=== PATIENT | female | born 1980 | race Hispanic/Latino ===

== ENCOUNTER 2016-11-02 01:10 | Day surgery (SDC) | payer OTHER ==
[2016-11-02] VITALS (7 sets, daily range): BP systolic 106–148; BP diastolic 56–84
[~2016-11-02] VITALS: Ht 172.7 cm; Wt 90.7 kg
[2016-11-02] MEDS ORDERED: MORPHINE 4 MG/ML 1ML SYRINGE As Ordered ONE ×2 (01:53→02:50)
[2016-11-02] MEDS ORDERED: ONDANSETRON 4MG/2ML VIAL (J2405) As Ordered ONE ×2 (01:53→16:27)
[2016-11-02 01:54] LABS: BASO % 0.4 % (0.0-1.0); EOS % 0.4 % (0.0-3.0); LARGE UNSTAINED CELL # 0.1 K/mm3 (0.0-0.4); LARGE UNSTAINED CELL % 1.3 % (0.0-4.0); LYMPH # 1.5 K/mm3 (1.5-4.5); LYMPH % 18.2 % (24.0-44.0); MEAN CORPUSCULAR HEMOGLOBIN 33.1 pg (27.0-33.0); MEAN CORPUSCULAR HGB CONC 33.6 g/dl (32.0-36.5); MEAN CORPUSCULAR VOLUME 98.5 fl (80.0-96.0); MONO # 0.3 K/mm3 (0.0-0.8); NEUTROPHILS # 6.4 K/mm3 (1.8-7.7); NEUTROPHILS % 76.7 % (36.0-66.0); PLATELET COUNT, AUTOMATED 223 k/mm3 (150-450); RED CELL DISTRIBUTION WIDTH 12.2 % (11.5-14.5); WHITE BLOOD COUNT 8.3 K/mm3 (4.0-10.0)
[2016-11-02 02:07] LABS: ALBUMIN 3.8 GM/DL (3.2-5.2); ALBUMIN/GLOBULIN RATIO 0.93 (1.00-1.93); ALKALINE PHOSPHATASE 70 U/L (45-117); ALT/SGPT 23 U/L (12-78); AMYLASE 65 U/L (25-115); ANION GAP 9 MEQ/L (8-16); AST/SGOT 10 U/L (15-37); BILIRUBIN,DIRECT < 0.1 MG/DL (0.0-0.2); BILIRUBIN,TOTAL 0.3 MG/DL (0.2-1.0); BLOOD UREA NITROGEN 13 MG/DL (7-18); CALCIUM LEVEL 8.5 MG/DL (8.5-10.1); CARBON DIOXIDE LEVEL 28 MEQ/L (21-32); CHLORIDE LEVEL 104 MEQ/L (98-107); CREATININE FOR GFR 0.88 MG/DL (0.55-1.02); GLOMERULAR FILTRATION RATE > 60.0 (>60); GLUCOSE, FASTING 116 MG/DL (70-105); POTASSIUM SERUM 3.8 MEQ/L (3.5-5.1); SODIUM LEVEL 141 MEQ/L (136-145); TOTAL PROTEIN 7.9 GM/DL (6.4-8.2)
--- NOTE | 2016-11-02 02:50 | REPUSA ---
CLINICAL HISTORY: Abdominal pain. TECHNIQUE: Realtime sonographic images were obtained in multiple projections. COMMENTS: The liver is of normal size, parenchyma demonstrates normal echogenicity. No discrete hepatic mass is seen. There is mild biliary ductal dilatation. CBD measures 7.6mm. The gallbladder is distended measuring 1 2.4x4.5x3.5 cm with an impacted stone in the neck of the gallbladder or the cystic duct. The right ki dney measures 11.8x4.6x4.7 cm , free of hydronephrosis. IMPRESSION: Distended gallbladder. Impacted gallstone in the neck of the gallbladder or proximal cystic duct. Mildly dilated extrahepatic biliary tree. Thank you for your kind referral of this patient.
[2016-11-02] MEDS ORDERED: HYDROmorphone HCL 1 MG/ML SYRINGE (J1170) As Ordered ONE ×3 (05:17→10:57)
[2016-11-02] MEDS: LR 1,000 ML IV SCH ×3 (07:58→23:58)
[2016-11-02] MEDS ORDERED: HYDROmorphone HCL 1 MG/ML SYRINGE (J1170) IV PRN ×2 (08:00)
[2016-11-02] MEDS ORDERED: ONDANSETRON 4MG/2ML VIAL (J2405) IV PRN ×2 (08:00→17:45)
[2016-11-02] MEDS ORDERED: ACETAMINOPHEN TAB 650MG DOSE (2X325MG) PO PRN (08:00)
[2016-11-02] MEDS ORDERED: TRINTAB PO (08:12)
[2016-11-02] MEDS ORDERED: PANTOPRAZOLE 40MG INJ (PROTONIX) (C9113) IV SCH (09:00)
[2016-11-02 09:59] LABS: CONTROL LINE HCG INT CTR LINE PRESENT
--- NOTE | 2016-11-02 11:30 | EDDOCDS ---
Nurse's Notes [facility] Name: Lelia Connor Age: 36 yrs Sex: Female : 1980 Arrival Date: 11/02/2016 Time: 01:10 Bed Admit Hold Private MD: Diagnosis: Cholecystitis, unspecified Presentation: 11/02 01:22 Presenting complaint: Patient states: Pain in epigastric area and RUQ since 2200. kmg1 Nausea and vomiting also. Risk factors: the patient reports no vaginal bleeding. Suicide/Homicide risk assessment- the patient denies having any suicidal and/or homicidal ideations and does not present with any other emotional, behavioral or mental health complaints. Status: The patient is a dependent. Transition of care: patient was not received from another setting of care. 01:22 Acuity: ERIKA Level 3 km 01:22 Method Of Arrival: Walkin/Carried/Asstd km 05:24 Adult Sepsis Screening: The patient does not have new or worsening altered mentation. [facility] [place] Patient's respiratory rate is less than 22. Systolic blood pressure is greater than 100. Patient has a qSOFA score of 0- Negative Sepsis Screen. Triage Assessment: 01:25 General: Appears uncomfortable, well nourished, well groomed, Behavior is cooperative, kmg1 pleasant, restless. Pain: Location: epigastric area and right upper quadrant Pain currently is 10 out of 10 on a pain scale. Pain radiates to back Quality of pain is described as stabbing, Pain began suddenly 3 hours ago. GI: Reports upper abd pain, nausea, vomiting. 05:24 Pt Declines HIV testing. [facility] [place] CARBIDE GRINDER: 01:25 LMP 10/11/2016 kmg1 Historical: - Allergies: No known drug Allergies; - Home Meds: 1. BCP 1 tab once daily - PMHx: Pneumothorax, Spontaneous; - PSHx: none; - Social history: Smoking status: Patient states was never smoker of tobacco. No barriers to communication noted, The patient speaks fluent Romanian, Speaks appropriately for age. - Family history: Not pertinent, No immediate family members are acutely ill. - : The pt / caregiver states he / she is not on anticoagulants. Home medication list is obtained from the patient. - Exposure Risk Screening:: None identified. Screenin:30 Screening information is obtained from the patient. Fall risk: No risks identified. mlc Assistance ADL's: requires no assistance with activities of daily living. Abuse/DV Screen: The patient / caregiver reports he/she is: not in a situation that causes fear, pain or injury. Nutritional screening: No deficits noted. Advance Directives: Currently, there is no health care proxy. home support is adequate. Assessment: 01:30 General: Appears ill, Behavior is appropriate for age. Pain: Location: right upper mlc quadrant Pain currently is 10 out of 10 on a pain scale. Pain radiates to xyphoid area. Neurological: Level of Consciousness is awake, alert, obeys commands, Oriented to person, place, time. Respiratory: Airway is patent Respiratory effort is even, unlabored, Respiratory pattern is regular. GI: Abdomen is non- distended Pt is actively vomiting clear fluid, Bowel sounds present X 4 quads. Abd is soft X 4 quads Reports nausea, vomiting. Derm: Skin is normal. 02:04 Reassessment: Patient appears in no apparent distress at this time. Patient states mlc symptoms have not improved. pt medicated per order. 02:23 Reassessment: Patient appears in no apparent distress at this time. Patient states mlc symptoms have not improved. 02:56 Reassessment: pt medicated per order. mlc 03:30 Reassessment: Patient appears in no apparent distress at this time. pt resting, appears mlc comfortable. resp easy/unlabored. pt denies need for additional pain meds at this time. . 04:30 Reassessment: Patient appears in no apparent distress at this time. pt resting mlc comfortably with eyes closed. . 05:22 Reassessment: Patient appears in no apparent distress at this time. pt reports increase mlc in pain, provider made aware. pt medicated per order. resp easy/unlabored. . 05:24 Adult Sepsis Screening: The patient does not have new or worsening altered mentation. mlc Patient's respiratory rate is less than 22. Systolic blood pressure is greater than 100. Patient has a qSOFA score of 0- Negative Sepsis Screen. 05:50 Reassessment: Patient appears in no apparent distress at this time. Patient states mlc feeling better. pain decreased to 6/10. resp easy/unlabored. IV fluids infusing per order. 06:57 Reassessment: Patient appears in no apparent distress at this time. pt resting with mlc eyes closed, offers no complaints. resp easy/unlabored. IV fluids infusing per order. 07:32 General: Appears uncomfortable, Behavior is appropriate for age, cooperative. Pain: hs1 Location: right subscapular area Pain currently is 9 out of 10 on a pain scale. Respiratory: Airway is patent Respiratory effort is even, unlabored, Respiratory pattern is regular, symmetrical. GI: Abdomen is non- distended. Derm: Skin is pink, warm & dry. normal. 08:22 Reassessment: Pt aware of plan for today having gall bladder out today by Dr Collins. hs1 Pt receiving pain medication at present and is resting as comfortably as allows. Pt aware of diet. . 09:45 General: Appears in no apparent distress, to be sleeping. Pt appears comfortable no hs1 needs noted. Pt resting at this time reentering room. . 10:32 General: Appears in no apparent distress, Behavior is appropriate for age, cooperative. hs1 Pain: Location: right subscapular area Pain currently is 4 out of 10 on a pain scale. Respiratory: No deficits noted. GI: Denies nausea. Derm: Skin is pink, warm & dry. normal. 11:02 General: Behavior is appropriate for age, cooperative. General: Given pain medication hs1 per order at this time. No needs noted. Pt aware of transfer to floor. . Pain: Location: right subscapular area Pain currently is 5 out of 10 on a pain scale. Vital Signs: 01:25 BP 116 / 88; Pulse 63; Resp 22; Temp 97(O); Pulse Ox 100% on R/A; Weight 90.72 kg (R); kmg1 Height 5 ft. 10 in. (177.80 cm) (R); Pain 10/10; 02:21 BP 130 / 84 (auto/); mlc 02:23 BP 130 / 84; Pulse 55; Resp 20; Pulse Ox 99% ; Pain 10/10; mlc 02:56 Pulse Ox 100% ; mlc 03:09 BP 120 / 77 (auto/); mlc 03:09 Pulse Ox 99% ; mlc 03:24 BP 128 / 81 (auto/); mlc 03:24 Pulse Ox 100% ; mlc 03:39 Pulse Ox 100% ; mlc 03:39 BP 136 / 85 (auto/); mlc 03:54 Pulse Ox 100% ; mlc 03:54 BP 133 / 85 (auto/); mlc 04:09 Pulse Ox 99% ; mlc 04:09 BP 130 / 82 (auto/); mlc 04:24 Pulse Ox 100% ; mlc 04:24 BP 125 / 78 (auto/); mlc 04:39 Pulse Ox 99% ; mlc 04:39 BP 128 / 80 (auto/); mlc 04:54 BP 125 / 78 (auto/); mlc 04:54 Pulse Ox 99% ; mlc 05:09 BP 143 / 84 (auto/); mlc 05:09 Pulse Ox 99% ; mlc 05:24 Pulse Ox 96% ; mlc 05:24 BP 125 / 77 (auto/); mlc 05:39 Pulse Ox 95% ; mlc 05:39 BP 118 / 71 (auto/); mlc 05:49 BP 118 / 71; Pulse 61; Resp 16; Pulse Ox 96% ; Pain 6/10; mlc 05:54 Pulse Ox 95% ; mlc 05:54 BP 123 / 77 (auto/); mlc 06:09 Pulse Ox 95% ; mlc 06:09 BP 123 / 76 (auto/); mlc 06:24 Pulse Ox 96% ; mlc 06:24 BP 133 / 83 (auto/); mlc 06:39 Pulse Ox 95% ; mlc 06:39 BP 126 / 80 (auto/); mlc 06:54 BP 129 / 82 (auto/); mlc 06:54 Pulse Ox 95% ; mlc 07:33 BP 132 / 82; Pulse 84; Resp 18; Pulse Ox 96% ; Pain 9/10; hs1 07:59 Temp 98.6(O); nb2 10:29 BP 132 / 82; Pulse 80; Resp 18; Temp 97.7(O); Pulse Ox 99% on R/A; Pain 4/10; ct3 01:25 Body Mass Index 28.70 (90.72 kg, 177.80 cm) [facility] [place] Vitals: 01:25 Log In Time: November 02, 2016 at 01:11. [facility] ED Course: 01:11 Patient visited by Chelsey Milan Reg. hs2 01:11 Patient moved to Waiting hs2 01:24 Triage Initiated [facility] 01:29 Maira Long,RN is Primary Nurse. [facility] 01:29 Patient moved to 18 km 01:30 The patient / caregiver is instructed regarding the plan of care and ED course. mlc 01:30 Inserted saline lock: 20 gauge in right antecubital area and blood collected. The mlc patient tolerated the procedure well. 01:32 Susanne Snyder DO is PHCP. bs6 01:32 Kroy Miller DO is Attending Physician. bs6 01:34 Patient visited by Susanne Snyder DO. bs6 01:35 Patient visited by Susanne Snyder DO. bs6 01:50 Amylase Sent. mlc 01:50 Basic Metabolic Profile Sent. mlc 01:50 CBC with Diff Sent. mlc 01:50 Lipase Sent. mlc 01:50 Liver Profile Sent. mlc 01:58 Patient moved to Ultrasound dmg 02:04 Patient visited by Maira Long RN. mlc 02:19 Patient moved to 18 mlc 02:23 Patient visited by Maira Long RN. mlc 02:50 [facility] [place] Payment Agreement was scanned into [employer] and attached to record. lja 02:56 Patient visited by Maira Long RN. mlc 03:03 US Abd Limited Returned. EDMS 03:30 Patient visited by Maira Long RN. mlc 03:37 Patient name changed from Lelia\S\\S\Connor\S\ to Lelia\S\Yves\S\Connor. EDMS 04:31 Patient visited by Nati Werner PCA. erwin 05:24 Patient visited by Maira Long RN. mlc 05:50 Patient visited by Maira Long RN. mlc 06:58 Patient visited by Maira Long RN. mlc 07:15 Attending Physician role handed off by Kory Miller DO fg 07:15 China Villanueva MD is Attending Physician. fg 07:23 Primary Nurse role handed off by Maira Long RN deg 07:47 Patient visited by Yelitza Ridley RN. hs1 07:59 Patient visited by Gloria Alicea. nb2 08:02 Barry Collins is Hospitalizing Provider. fg 08:09 Written Provider Order was scanned into [employer] and attached to record. deg 09:23 Patient moved to Admit Hold deg 10:29 Patient visited by Olivia Sadler PCA. ct3 10:56 No procedures done that require assistance. hs1 Administered Medications: 02:02 Drug: morphine 4 mg [morphine 4 mg/mL intravenous cartridge (1 mL)] Route: IVP; Site: [facility] [place] right antecubital; 02:23 Follow up: BP 130 / 84; Pulse 55 bpm; Resp 20 bpm; Pulse Ox 99% ; Pain 10/10 Adult; mlc Response: No significant change.; Pain is unchanged, physician notified 02:02 Drug: Ondansetron 4 mg [ondansetron HCl 2 mg/mL intravenous solution (2 mL)] Route: mlc IVP; Site: right antecubital; 02:55 Drug: morphine 4 mg [morphine 4 mg/mL intravenous cartridge (1 mL)] Route: IVP; Site: [facility] [place] right antecubital; 03:28 Drug: NS 0.9% 1000 ml [sodium chloride 0.9 % intravenous solution] Route: IV; Rate: 200 mlc mL/hr; Site: right antecubital; 05:22 Drug: Dilaudid - HYDROmorphone 0.5 mg [hydromorphone 1 mg/mL injection syringe (0.5 mlc mL)] Route: IVP; Site: right antecubital; 05:49 Follow up: BP 118 / 71; Pulse 61 bpm; Resp 16 bpm; Pulse Ox 96% ; Pain 6/10 Adult; mlc Response: Pain is decreased 08:19 Drug: Dilaudid - HYDROmorphone 0.5 mg [hydromorphone 1 mg/mL injection syringe (0.5 hs1 mL)] Route: IVP; Site: right antecubital; 08:20 Drug: LR 1000 ml [lactated ringers intravenous solution] Route: IV; Rate: 125 mL/hr; hs1 Site: right antecubital; 11:04 Drug: Dilaudid - HYDROmorphone 0.5 mg [hydromorphone 1 mg/mL injection syringe (0.5 hs1 mL)] Route: IVP; Site: right antecubital; Order Results: Lab Order: Amylase; SPEC'M 11/02/16 01:39 Test: AMYLASE; Value: 65; Range: 25-115; Units: U/L; Status: F Lab Order: Basic Metabolic Profile; SPEC'M 11/02/16 01:39 Test: GLUCOSE, FASTING; Value: 116; Range: 70-105; Abnormal: Above high normal; Units: MG/DL; Status: F Test: BLOOD UREA NITROGEN; Value: 13; Range: 7-18; Units: MG/DL; Status: F Test: CREATININE FOR GFR; Value: 0.88; Range: 0.55-1.02; Units: MG/DL; Status: F Test: GLOMERULAR FILTRATION RATE; Value: > 60.0; Range: >60; Status: F Test: SODIUM LEVEL; Value: 141; Range: 136-145; Units: MEQ/L; Status: F Test: POTASSIUM SERUM; Value: 3.8; Range: 3.5-5.1; Units: MEQ/L; Status: F Test: CHLORIDE LEVEL; Value: 104; Range: 98-107; Units: MEQ/L; Status: F Test: CARBON DIOXIDE LEVEL; Value: 28; Range: 21-32; Units: MEQ/L; Status: F Test: ANION GAP; Value: 9; Range: 8-16; Units: MEQ/L; Status: F Test: CALCIUM LEVEL; Value: 8.5; Range: 8.5-10.1; Units: MG/DL; Status: F Test Note: ; Units are mL/min/1.73 m2 Chronic Kidney Disease Staging per NKF: Stage I & II GFR >=60 Normal to Mildly Decreased Stage III GFR 30-59 Moderately Decreased Stage IV GFR 15-29 Severely Decreased Stage V GFR <15 Very Little GFR Left ESRD GFR <15 on CERTIFIED WELLNESS PROGRAM COORDINATOR Lab Order: CBC with Diff; SPEC'M 11/02/16 01:39 Test: WHITE BLOOD COUNT; Value: 8.3; Range: 4.0-10.0; Units: K/mm3; Status: F Test: RED BLOOD COUNT; Value: 4.04; Range: 4.00-5.40; Units: M/mm3; Status: F Test: HEMOGLOBIN; Value: 13.4; Range: 12.0-16.0; Units: g/dl; Status: F Test: HEMATOCRIT; Value: 39.8; Range: 36.0-47.0; Units: %; Status: F Test: MEAN CORPUSCULAR VOLUME; Value: 98.5; Range: 80.0-96.0; Abnormal: Above high normal; Units: fl; Status: F Test: MEAN CORPUSCULAR HEMOGLOBIN; Value: 33.1; Range: 27.0-33.0; Abnormal: Above high normal; Units: pg; Status: F Test: MEAN CORPUSCULAR HGB CONC; Value: 33.6; Range: 32.0-36.5; Units: g/dl; Status: F Test: RED CELL DISTRIBUTION WIDTH; Value: 12.2; Range: 11.5-14.5; Units: %; Status: F Test: PLATELET COUNT, AUTOMATED; Value: 223; Range: 150-450; Units: k/mm3; Status: F Test: NEUTROPHILS %; Value: 76.7; Range: 36.0-66.0; Abnormal: Above high normal; Units: %; Status: F Test: LYMPH %; Value: 18.2; Range: 24.0-44.0; Abnormal: Below low normal; Units: %; Status: F Test: MONO %; Value: 3.0; Range: 0.0-5.0; Units: %; Status: F Test: EOS %; Value: 0.4; Range: 0.0-3.0; Units: %; Status: F Test: BASO %; Value: 0.4; Range: 0.0-1.0; Units: %; Status: F Test: LARGE UNSTAINED CELL %; Value: 1.3; Range: 0.0-4.0; Units: %; Status: F Test: NEUTROPHILS #; Value: 6.4; Range: 1.8-7.7; Units: K/mm3; Status: F Test: LYMPH #; Value: 1.5; Range: 1.5-4.5; Units: K/mm3; Status: F Test: MONO #; Value: 0.3; Range: 0.0-0.8; Units: K/mm3; Status: F Test: EOS #; Value: 0.0; Range: 0.0-0.50; Units: K/mm3; Status: F Test: BASO #; Value: 0.0; Range: 0.0-0.2; Units: K/mm3; Status: F Test: LARGE UNSTAINED CELL #; Value: 0.1; Range: 0.0-0.4; Units: K/mm3; Status: F Lab Order: Lipase; SPEC'M 11/02/16 01:39 Test: LIPASE; Value: 107; Range: 73-393; Units: U/L; Status: F Lab Order: Liver Profile; SPEC'M 11/02/16 01:39 Test: AST/SGOT; Value: 10; Range: 15-37; Abnormal: Below low normal; Units: U/L; Status: F Test: ALT/SGPT; Value: 23; Range: 12-78; Units: U/L; Status: F Test: ALKALINE PHOSPHATASE; Value: 70; Range: 45-117; Units: U/L; Status: F Test: BILIRUBIN,TOTAL; Value: 0.3; Range: 0.2-1.0; Units: MG/DL; Status: F Test: BILIRUBIN,DIRECT; Value: < 0.1; Range: 0.0-0.2; Units: MG/DL; Status: F Test: TOTAL PROTEIN; Value: 7.9; Range: 6.4-8.2; Units: GM/DL; Status: F Test: ALBUMIN; Value: 3.8; Range: 3.2-5.2; Units: GM/DL; Status: F Test: ALBUMIN/GLOBULIN RATIO; Value: 0.93; Range: 1.00-1.93; Abnormal: Below low normal; Status: F Radiology Order: US Abd Limited Test: US Abd Limited REASON FOR EXAMINATION: Biliary Colic; ; CLINICAL HISTORY: Abdominal pain.; TECHNIQUE: Realtime sonographic images were obtained in multiple projections.; COMMENTS:; The liver is of normal size, parenchyma demonstrates normal echogenicity. No discrete hepatic mass is; seen.; There is mild biliary ductal dilatation. CBD measures 7.6mm. The gallbladder is distended measuring 1; 2.4x4.5x3.5 cm with an impacted stone in the neck of the gallbladder or the cystic duct. The right ki; dney measures 11.8x4.6x4.7 cm , free of hydronephrosis.; IMPRESSION:; Distended gallbladder.; Impacted gallstone in the neck of the gallbladder or proximal cystic duct.; Mildly dilated extrahepatic biliary tree.; Thank you for your kind referral of this patient.; ; Outcome: 03:39 Ultrasound Study completed. [facility] [place] 08:03 Decision to Hospitalize by Provider. fg 11:02 Discharge Assessment: Patient awake, alert and oriented x 3. No cognitive and/or hs1 functional deficits noted. Patient verbalized understanding of disposition instructions. patient administered narcotics - yes. Pt provided with safe discharge. The following High Risk Discharge criteria are identified: None. Admitted to Pediatrics accompanied by nurse, family with patient, via wheelchair, with chart. Condition: stable. Admission hand-off: Report called to Pediatrics. Property :Personal belongings accompany Pt. 11:30 Patient left the ED. hs1 Signatures: Dispatcher [employer] EDMS Marcella Davis, Pole Framer Machine Unit deg Yessica Dutton, RN RN kmg1 Lucia Ford Hannah, RN RN hs1 Nati Werner, CAPTAIN/CHECK AIRMAN CAPTAIN/CHECK AIRMAN erwin Olivia Sadler, CAPTAIN/CHECK AIRMAN CAPTAIN/CHECK AIRMAN ct3 Susanne Snyder, DO DO bs6 Maira Long,RN RN [facility] [place] Arturo, China Leone MD MD fg Stanton, Hillary, Reg Reg hs2 Gloria Alicea 2 KUSH
--- NOTE | 2016-11-02 11:30 | EDDOCDS ---
Physician Documentation [facility] Name: Lelia Connor Age: 36 yrs Sex: Female : 1980 Arrival Date: 11/02/2016 Time: 01:10 Bed Admit Hold Private MD: Disposition: 11/02/16 08:03 Hospitalization ordered by Barry Collins for Inpatient Admission. Preliminary diagnosis is Cholecystitis, unspecified. - Bed requested for M PED. - Status is Inpatient Admission. hs1 - Condition is Stable. - Problem is new. - Symptoms have improved. Historical: - Allergies: No known drug Allergies; - Home Meds: 1. BCP 1 tab once daily - PMHx: Pneumothorax, Spontaneous; - PSHx: none; - Social history: Smoking status: Patient states was never smoker of tobacco. No barriers to communication noted, The patient speaks fluent Armenian, Speaks appropriately for age. - Family history: Not pertinent, No immediate family members are acutely ill. - : The pt / caregiver states he / she is not on anticoagulants. Home medication list is obtained from the patient. - Exposure Risk Screening:: None identified. OVERLAY PLASTICIAN: 11/02 01:25 LMP 10/11/2016 kmg1 Vital Signs: 01:25 BP 116 / 88; Pulse 63; Resp 22; Temp 97(O); Pulse Ox 100% on R/A; Weight 90.72 kg / 200 kmg1 lbs (R); Height 5 ft. 10 in. (177.80 cm) (R); Pain 10/10; 02:21 BP 130 / 84 (auto/); mlc 02:23 BP 130 / 84; Pulse 55; Resp 20; Pulse Ox 99% ; Pain 10/10; mlc 02:56 Pulse Ox 100% ; mlc 03:09 BP 120 / 77 (auto/); mlc 03:09 Pulse Ox 99% ; mlc 03:24 BP 128 / 81 (auto/); mlc 03:24 Pulse Ox 100% ; mlc 03:39 Pulse Ox 100% ; mlc 03:39 BP 136 / 85 (auto/); mlc 03:54 Pulse Ox 100% ; mlc 03:54 BP 133 / 85 (auto/); mlc 04:09 Pulse Ox 99% ; mlc 04:09 BP 130 / 82 (auto/); mlc 04:24 Pulse Ox 100% ; mlc 04:24 BP 125 / 78 (auto/); mlc 04:39 Pulse Ox 99% ; mlc 04:39 BP 128 / 80 (auto/); mlc 04:54 BP 125 / 78 (auto/); mlc 04:54 Pulse Ox 99% ; mlc 05:09 BP 143 / 84 (auto/); mlc 05:09 Pulse Ox 99% ; mlc 05:24 Pulse Ox 96% ; mlc 05:24 BP 125 / 77 (auto/); mlc 05:39 Pulse Ox 95% ; mlc 05:39 BP 118 / 71 (auto/); mlc 05:49 BP 118 / 71; Pulse 61; Resp 16; Pulse Ox 96% ; Pain 6/10; mlc 05:54 Pulse Ox 95% ; mlc 05:54 BP 123 / 77 (auto/); mlc 06:09 Pulse Ox 95% ; mlc 06:09 BP 123 / 76 (auto/); mlc 06:24 Pulse Ox 96% ; mlc 06:24 BP 133 / 83 (auto/); mlc 06:39 Pulse Ox 95% ; mlc 06:39 BP 126 / 80 (auto/); mlc 06:54 BP 129 / 82 (auto/); mlc 06:54 Pulse Ox 95% ; mlc 07:33 BP 132 / 82; Pulse 84; Resp 18; Pulse Ox 96% ; Pain 9/10; hs1 07:59 Temp 98.6(O); nb2 10:29 BP 132 / 82; Pulse 80; Resp 18; Temp 97.7(O); Pulse Ox 99% on R/A; Pain 4/10; ct3 01:25 Body Mass Index 28.70 (90.72 kg, 177.80 cm) [facility] [place]DM: 01:45 morphine 4 mg IVP once ordered. bs6 01:48 Undress patient appropriately for examination ordered. bs6 01:49 Amylase Ordered. EDMS 01:49 Basic Metabolic Profile Ordered. EDMS 01:49 CBC with Diff Ordered. EDMS 01:49 Lipase Ordered. EDMS 01:49 Liver Profile Ordered. EDMS 01:49 NOTHING BY MOUTH+DIET ordered. EDMS 01:50 US Abd Limited Ordered. EDMS 01:53 Ondansetron 4 mg IVP once ordered. bs6 02:30 morphine 4 mg IVP once ordered. bs6 02:50 [place] Payment Agreement was scanned into [employer] and attached to record. lja 02:50 Financial registration complete. lja 03:14 NS 0.9% 1000 ml IV at 200 mL/hr continuous ordered. bs6 05:16 Dilaudid - HYDROmorphone 0.5 mg IVP once ordered. bs6 08:03 BED REQUEST+ADM ordered. EDMS 08:07 Admission / Observation Status ordered. EDMS 08:07 NPO DIET ordered. EDMS 08:09 Written Provider Order was scanned into [employer] and attached to record. deg 08:19 LR Solution 1000 ml IV at 125 mL/hr once ordered. hs1 08:19 Dilaudid - HYDROmorphone 0.5 mg IVP once ordered. hs1 09:41 HCG,Serum Qualitative Ordered. EDMS 11:03 Dilaudid - HYDROmorphone 0.5 mg IVP once ordered. hs1 Administered Medications: 02:02 Drug: morphine 4 mg [morphine 4 mg/mL intravenous cartridge (1 mL)] Route: IVP; Site: mlc right antecubital; 02:23 Follow up: BP 130 / 84; Pulse 55 bpm; Resp 20 bpm; Pulse Ox 99% ; Pain 10/10 Adult; mlc Response: No significant change.; Pain is unchanged, physician notified 02:02 Drug: Ondansetron 4 mg [ondansetron HCl 2 mg/mL intravenous solution (2 mL)] Route: mlc IVP; Site: right antecubital; 02:55 Drug: morphine 4 mg [morphine 4 mg/mL intravenous cartridge (1 mL)] [place]: IVP; [place] [facility] [place]; 03:28 Drug: NS 0.9% 1000 ml [sodium chloride 0.9 % intravenous solution] Route: IV; Rate: 200 mlc mL/hr; Site: right antecubital; 05:22 Drug: Dilaudid - HYDROmorphone 0.5 mg [hydromorphone 1 mg/mL injection syringe (0.5 mlc mL)] Route: IVP; Site: right antecubital; 05:49 Follow up: BP 118 / 71; Pulse 61 bpm; Resp 16 bpm; Pulse Ox 96% ; Pain 6/10 Adult; mlc Response: Pain is decreased 08:19 Drug: Dilaudid - HYDROmorphone 0.5 mg [hydromorphone 1 mg/mL injection syringe (0.5 hs1 mL)] Route: IVP; Site: right antecubital; 08:20 Drug: LR 1000 ml [lactated ringers intravenous solution] Route: IV; Rate: 125 mL/hr; hs1 Site: right antecubital; 11:04 Drug: Dilaudid - HYDROmorphone 0.5 mg [hydromorphone 1 mg/mL injection syringe (0.5 hs1 mL)] Route: IVP; Site: right antecubital; Signatures: Dispatcher [employer] EDMS Marcella Davis, Hot Die Press Feeder Unit deg Yessica Dutton, RN RN kmg1 Yelitza Ridley RN RN hs1 Susanne Snyder DO DO bs6 Maira Long,RN RN mlc Arel, China Leone MD MD Miguelina Saba RN RN lmg The chart was reviewed and I authenticate all verbal orders and agree with the evaluation and treatment provided.Attachments: 02:50 [facility] Payment Agreement 08:09 Written Provider Order deg MTDD
[2016-11-02] MEDS: AMPICILLIN SOD/SULBACTAM SOD 3 GM in D5W MINI-BAG PLUS 100 ML IV SCH ×3 (11:48→19:59)
[2016-11-02] MEDS: KETOROLAC 30 MG/ML VIAL (J1885) IV PRN ×2 (13:53→20:06)
[2016-11-02] MEDS ORDERED: BUPIVACAINE HCL 0.25% 30 ML VIAL As Ordered ONE (15:15)
[2016-11-02] MEDS ORDERED: MIDAZOLAM INJ 2 MG/2 ML VIAL (J2250) As Ordered ONE (16:03)
[2016-11-02] MEDS ORDERED: dexameTHASONE 4 MG/ML 1ML VIAL (J1100) As Ordered ONE (16:03)
[2016-11-02] MEDS ORDERED: PROPOFOL 200 MG/20 ML VIAL As Ordered ONE (16:03)
[2016-11-02] MEDS ORDERED: fentaNYL 250 MCG/5 ML INJECTION (J3010) As Ordered ONE (16:03)
[2016-11-02] MEDS ORDERED: ROCURONIUM BROMIDE 50 MG/5 ML VIAL As Ordered ONE (16:03)
[2016-11-02] MEDS ORDERED: PHENYLephrine HCL 500 MCG/5 ML (100MCG/ML) SYRINGE (J2370) As Ordered ONE (16:10)
[2016-11-02] MEDS ORDERED: GLYCOPYRROLATE INJ 0.2 MG/ML 2 ML VIAL As Ordered ONE (16:27)
[2016-11-02] MEDS ORDERED: KETOROLAC 60 MG/2 ML VIAL (J1885) As Ordered ONE (16:27)
[2016-11-02] MEDS ORDERED: NEOSTIGMINE 1MG/ML 5 ML SYRINGE (J2710) As Ordered ONE (16:27)
[2016-11-02] MEDS ORDERED: BUPIVACAINE HCL 0.25% 30 ML VIAL SC ONE (17:10)
[2016-11-02] MEDS ORDERED: METOCLOPRAMIDE INJ 10MG/2ML VIAL (J2765) IV PRN (17:45)
[2016-11-02] MEDS ORDERED: MORPHINE 2 MG/ML 1ML SYRINGE IV PRN (17:45)
[2016-11-02] MEDS ORDERED: PERCOCET 5MG/325MG TAB PO PRN (17:45)
[2016-11-02] MEDS ORDERED: LR 1,000 ML IV SCH (17:45)
[2016-11-02] MEDS ORDERED: fentaNYL 100 MCG/2 ML INJECTION (J3010) IV PRN (17:45)
[2016-11-03] VITALS: BP 104/57
[2016-11-03] MEDS: NORCO, ANEXSIA 5/325MG TABLET (HYDROcodone/ACETAMINOPHEN) PO PRN ×2 (00:34→05:28)
[2016-11-03 04:00] VITALS: BP 112/73
[2016-11-03] MEDS: LR 1,000 ML IV SCH (07:24)
[2016-11-03 08:00] VITALS: BP 122/72
--- NOTE | 2016-11-03 08:30 | HPE ---
DATE OF ADMISSION: 11/02/2016 Admitting diagnosis is cholelithiasis with acute cholecystitis. HISTORY OF THE PRESENT ILLNESS: Patient is a very pleasant, 36-year-old woman who presented to the emergency department at 0110 hours in the morning on 11/02/2016 complaining of epigastric and right upper quadrant pain since approximately 2200 hours. Patient reports that she had been feeling well. She denies any history of prior episodes of similar pain. She developed what was at first fairly mild epigastric pain into the right upper quadrant. She developed some nausea. The pain worsened in intensity and the nausea progressed to vomiting. The pain did not let up and she presented to the emergency department for evaluation. She was found to have some tenderness in the right upper quadrant. Her laboratory studies were unremarkable and a gallbladder ultrasound revealed a gallstone located in the gallbladder neck with some gallbladder distension. Patient's pain was improved by analgesics but did not resolve, and after 10 hours she still has pain in the right upper quadrant with tenderness on palpation in the subcostal area. With a diagnosis of acute cholecystitis, the patient is now placed on same-day surgery status to have a laparoscopic cholecystectomy. ALLERGIES: The patient denies any known drug allergies. HOME MEDICATION: Patient's only medication is her daily control pill. Her medical history is significant for a spontaneous pneumothorax on the left some years ago, which was treated with tube thoracostomy. Surgical history is negative other than the tube thoracostomy. SOCIAL HISTORY: The patient is . She participates in [employer]. She is a never smoker and denies excessive alcohol intake. She is accompanied by her who is an active duty automobile service writer. Family history is not pertinent. REVIEW OF SYSTEMS: Reveals no history of seizure. She denies any cardiac or respiratory problems. She has no history of hepatitis, pancreatitis or yellow jaundice. She denies any history of peptic ulcer disease or gastrointestinal bleeding. She has no dysuria or hematuria. There are no active gynecologic problems. She has no orthopedic complaints. There is no history of deep venous thrombosis (DVT) or pulmonary embolus. PHYSICAL EXAMINATION: Reveals a very pleasant woman lying quietly on the hospital stretcher in no obvious distress. Her most recent vital signs show a blood pressure of 132/82, pulse of 84, respirations of 18. Her height is recorded as 5 feet 10 inches with a weight of 91 kg, giving her a body mass index (BMI) of approximately 29. Patient's skin is warm and dry. Sclerae are anicteric. Mucous membranes are moist. The neck is supple, without mass or bruit. Heart exam shows a regular rate and rhythm. The lungs are clear to auscultation. The abdomen is flat. She does have some bowel sounds present. There is no tympany to percussion. There is no tenderness to percussion. On palpation of the right upper quadrant, patient has mild to moderate direct tenderness in the right subcostal area. This is fairly limited in an area about 10 cm wide. Her laboratory studies show white count of 8 with a differential showing 77% neutrophils and 18% lymphocytes. Hemoglobin is 13 with a hematocrit of 40 and a platelet count is 223,000. Chemistry profile shows normal electrolytes, BUN and creatinine, with a glucose which was nonfasting of 116. Amylase and lipase are normal. Liver function tests are normal. Gallbladder ultrasound as noted showed a stone in the gallbladder neck with some gallbladder distension. IMPRESSION: Acute cholecystitis. PLAN: Patient was counseled for laparoscopic cholecystectomy. Indications for the procedure as well as the risks and possible benefits were discussed. She had an opportunity to ask questions as did her . They wish to proceed with the procedure. She will be placed on same-day surgery status. She will be started on Unasyn for antibiotic coverage. Orders are in place for analgesics as necessary and we will plan on adding her to the operating room (OR) for today. KUSH
[2016-11-03] MEDS: KETOROLAC 30 MG/ML VIAL (J1885) IV PRN (08:45)
--- NOTE | 2016-11-03 10:49 | RO ---
DATE OF PROCEDURE: 11/02/2016 PREOPERATIVE DIAGNOSIS: Acute cholecystitis. POSTOPERATIVE DIAGNOSIS: Acute cholecystitis. PROCEDURE PERFORMED: Laparoscopic cholecystectomy. SURGEON: Barry Collins MD TRANSPORTATION DEPARTMENT SUPERVISOR: ANESTHESIA: General. INDICATIONS FOR THE PROCEDURE: Patient is a 36-year-old woman who presented to the emergency department following the onset of the evening of 11/01/2016 of significant upper abdominal pain. A gallbladder ultrasound revealed a stone at the gallbladder neck. She continued with pain and developed tenderness in the right subcostal area. She was diagnosed with acute cholecystitis and kept on surgical day care status for laparoscopic cholecystectomy. OPERATIVE PROCEDURE: The patient was placed under general endotracheal anesthesia. The patient's abdomen was prepped and draped in a sterile fashion. 0.25% Marcaine was infiltrated at each of the trocar sites. A short supraumbilical midline incision was deepened through the fascia and the peritoneum was opened bluntly. A Alesha cannula was inserted and the abdomen was insufflated with carbon dioxide. The laparoscope was placed. Initial examination showed a normal-appearing liver. Visualized loops of the stomach and small and large bowel were normal. The gallbladder was distended and appeared mildly erythematous. Two 5 mm trocars were placed in the right upper quadrant. The third 5 mm trocar was placed in the left upper quadrant. The patient was tilted to a reverse Trendelenburg position and rolled to the left. The gallbladder was tensely distended. The gallbladder was aspirated and the aspirated fluid was clear and completely colorless like water. This was discarded. The gallbladder was grasped and elevated. Dissection then began at the region of the gallbladder neck. The patient was noted to have some inflammatory changes in the region around the gallbladder neck. As dissection proceeded, it was noted that the patient had a fairly long cystic duct and a stone was noted in the distal cystic duct, perhaps 2 cm from the junction with the common bile duct. The cystic duct was doubly clipped with hemoclips and divided. The gallbladder was then dissected free from the gallbladder bed using cautery dissection. A major artery to the gallbladder was not identified. The gallbladder was not perforated in the course of dissection. The gallbladder was placed in an Endopouch. The right upper quadrant was irrigated and inspected. A small bleeding point along the lateral edge of the gallbladder bed was controlled with the cautery. Final inspection revealed no evidence of bleeding and no bile leak. The patient was returned to a flat position. The abdomen was deflated and the trocars were removed. The gallbladder was recovered through the Alesha cannula. This was sent for permanent pathology. The fascia at the Alesha site was closed with interrupted simple sutures of #2-0 Vicryl. The skin incisions were all closed with buried #5-0 Vicryl and Steri-Strips. Light dressings were applied. The patient tolerated the procedure well without apparent complication. She was awakened in the operating room, extubated and moved to the recovery room in stable condition. KUSH
--- NOTE | 2016-11-04 12:31 | EDDOCDS ---
Nurse's Notes [facility] Name: Lelia Connor Age: 36 yrs Sex: Female : 1980 Arrival Date: 11/02/2016 Time: 01:10 Bed Admit Hold Private MD: Diagnosis: Cholecystitis, unspecified Presentation: 11/02 01:22 Presenting complaint: Patient states: Pain in epigastric area and RUQ since 2200. kmg1 Nausea and vomiting also. Risk factors: the patient reports no vaginal bleeding. Suicide/Homicide risk assessment- the patient denies having any suicidal and/or homicidal ideations and does not present with any other emotional, behavioral or mental health complaints. Status: The patient is a dependent. Transition of care: patient was not received from another setting of care. 01:22 Acuity: ERIKA Level 3 km 01:22 Method Of Arrival: Walkin/Carried/Asstd km 05:24 Adult Sepsis Screening: The patient does not have new or worsening altered mentation. [facility] Patient's respiratory rate is less than 22. Systolic blood pressure is greater than 100. Patient has a qSOFA score of 0- Negative Sepsis Screen. Triage Assessment: 01:25 General: Appears uncomfortable, well nourished, well groomed, Behavior is cooperative, kmg1 pleasant, restless. Pain: Location: epigastric area and right upper quadrant Pain currently is 10 out of 10 on a pain scale. Pain radiates to back Quality of pain is described as stabbing, Pain began suddenly 3 hours ago. GI: Reports upper abd pain, nausea, vomiting. 05:24 Pt Declines HIV testing. 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 BCP 1 tab once daily - PMHx: Pneumothorax, Spontaneous; - PSHx: none; - Social history: Smoking status: Patient states was never smoker of tobacco. No barriers to communication noted, The patient speaks fluent Vietnamese, Speaks appropriately for age. - Family history: Not pertinent, No immediate family members are acutely ill. - : The pt / caregiver states he / she is not on anticoagulants. Home medication list is obtained from the patient. - Exposure Risk Screening:: None identified. Screenin:30 Screening information is obtained from the patient. Fall risk: No risks identified. mlc Assistance ADL's: requires no assistance with activities of daily living. Abuse/DV Screen: The patient / caregiver reports he/she is: not in a situation that causes fear, pain or injury. Nutritional screening: No deficits noted. Advance Directives: Currently, there is no health care proxy. home support is adequate. Assessment: 01:30 General: Appears ill, Behavior is appropriate for age. Pain: Location: right upper mlc quadrant Pain currently is 10 out of 10 on a pain scale. Pain radiates to xyphoid area. Neurological: Level of Consciousness is awake, alert, obeys commands, Oriented to person, place, time. Respiratory: Airway is patent Respiratory effort is even, unlabored, Respiratory pattern is regular. GI: Abdomen is non- distended Pt is actively vomiting clear fluid, Bowel sounds present X 4 quads. Abd is soft X 4 quads Reports nausea, vomiting. Derm: Skin is normal. 02:04 Reassessment: Patient appears in no apparent distress at this time. Patient states mlc symptoms have not improved. pt medicated per order. 02:23 Reassessment: Patient appears in no apparent distress at this time. Patient states mlc symptoms have not improved. 02:56 Reassessment: pt medicated per order. mlc 03:30 Reassessment: Patient appears in no apparent distress at this time. pt resting, appears mlc comfortable. resp easy/unlabored. pt denies need for additional pain meds at this time. . 04:30 Reassessment: Patient appears in no apparent distress at this time. pt resting mlc comfortably with eyes closed. . 05:22 Reassessment: Patient appears in no apparent distress at this time. pt reports increase mlc in pain, provider made aware. pt medicated per order. resp easy/unlabored. . 05:24 Adult Sepsis Screening: The patient does not have new or worsening altered mentation. mlc Patient's respiratory rate is less than 22. Systolic blood pressure is greater than 100. Patient has a qSOFA score of 0- Negative Sepsis Screen. 05:50 Reassessment: Patient appears in no apparent distress at this time. Patient states mlc feeling better. pain decreased to 6/10. resp easy/unlabored. IV fluids infusing per order. 06:57 Reassessment: Patient appears in no apparent distress at this time. pt resting with mlc eyes closed, offers no complaints. resp easy/unlabored. IV fluids infusing per order. 07:32 General: Appears uncomfortable, Behavior is appropriate for age, cooperative. Pain: hs1 Location: right subscapular area Pain currently is 9 out of 10 on a pain scale. Respiratory: Airway is patent Respiratory effort is even, unlabored, Respiratory pattern is regular, symmetrical. GI: Abdomen is non- distended. Derm: Skin is pink, warm & dry. normal. 08:22 Reassessment: Pt aware of plan for today having gall bladder out today by Dr Collins. hs1 Pt receiving pain medication at present and is resting as comfortably as allows. Pt aware of diet. . 09:45 General: Appears in no apparent distress, to be sleeping. Pt appears comfortable no hs1 needs noted. Pt resting at this time reentering room. . 10:32 General: Appears in no apparent distress, Behavior is appropriate for age, cooperative. hs1 Pain: Location: right subscapular area Pain currently is 4 out of 10 on a pain scale. Respiratory: No deficits noted. GI: Denies nausea. Derm: Skin is pink, warm & dry. normal. 11:02 General: Behavior is appropriate for age, cooperative. General: Given pain medication hs1 per order at this time. No needs noted. Pt aware of transfer to floor. . Pain: Location: right subscapular area Pain currently is 5 out of 10 on a pain scale. Vital Signs: 01:25 BP 116 / 88; Pulse 63; Resp 22; Temp 97(O); Pulse Ox 100% on R/A; Weight 90.72 kg (R); kmg1 Height 5 ft. 10 in. (177.80 cm) (R); Pain 10/10; 02:21 BP 130 / 84 (auto/); mlc 02:23 BP 130 / 84; Pulse 55; Resp 20; Pulse Ox 99% ; Pain 10/10; mlc 02:56 Pulse Ox 100% ; mlc 03:09 BP 120 / 77 (auto/); mlc 03:09 Pulse Ox 99% ; mlc 03:24 BP 128 / 81 (auto/); mlc 03:24 Pulse Ox 100% ; mlc 03:39 Pulse Ox 100% ; mlc 03:39 BP 136 / 85 (auto/); mlc 03:54 Pulse Ox 100% ; mlc 03:54 BP 133 / 85 (auto/); mlc 04:09 Pulse Ox 99% ; mlc 04:09 BP 130 / 82 (auto/); mlc 04:24 Pulse Ox 100% ; mlc 04:24 BP 125 / 78 (auto/); mlc 04:39 Pulse Ox 99% ; mlc 04:39 BP 128 / 80 (auto/); mlc 04:54 BP 125 / 78 (auto/); mlc 04:54 Pulse Ox 99% ; mlc 05:09 BP 143 / 84 (auto/); mlc 05:09 Pulse Ox 99% ; mlc 05:24 Pulse Ox 96% ; mlc 05:24 BP 125 / 77 (auto/); mlc 05:39 Pulse Ox 95% ; mlc 05:39 BP 118 / 71 (auto/); mlc 05:49 BP 118 / 71; Pulse 61; Resp 16; Pulse Ox 96% ; Pain 6/10; mlc 05:54 Pulse Ox 95% ; mlc 05:54 BP 123 / 77 (auto/); mlc 06:09 Pulse Ox 95% ; mlc 06:09 BP 123 / 76 (auto/); mlc 06:24 Pulse Ox 96% ; mlc 06:24 BP 133 / 83 (auto/); mlc 06:39 Pulse Ox 95% ; mlc 06:39 BP 126 / 80 (auto/); mlc 06:54 BP 129 / 82 (auto/); mlc 06:54 Pulse Ox 95% ; mlc 07:33 BP 132 / 82; Pulse 84; Resp 18; Pulse Ox 96% ; Pain 9/10; hs1 07:59 Temp 98.6(O); nb2 10:29 BP 132 / 82; Pulse 80; Resp 18; Temp 97.7(O); Pulse Ox 99% on R/A; Pain 4/10; ct3 01:25 Body Mass Index 28.70 (90.72 kg, 177.80 cm) [facility] [place]als: 01:25 Log In Time: November 02, 2016 at 01:11. [facility] [place] Course: 01:11 Patient visited by Chelsey Milan Reg. hs2 01:11 Patient moved to Waiting hs2 01:24 Triage Initiated [facility] 01:29 Maira Long,RN is Primary Nurse. [facility] 01:29 Patient moved to 18 km 01:30 The patient / caregiver is instructed regarding the plan of care and ED course. mlc 01:30 Inserted saline lock: 20 gauge in right antecubital area and blood collected. The mlc patient tolerated the procedure well. 01:32 Susanne Snyder DO is PHCP. bs6 01:32 Kory Miller DO is Attending Physician. bs6 01:34 Patient visited by Susanne Snyder DO. bs6 01:35 Patient visited by Susanne Snyder DO. bs6 01:50 Amylase Sent. mlc 01:50 Basic Metabolic Profile Sent. mlc 01:50 CBC with Diff Sent. mlc 01:50 Lipase Sent. mlc 01:50 Liver Profile Sent. mlc 01:58 Patient moved to Ultrasound dmg 02:04 Patient visited by Maira Long RN. mlc 02:19 Patient moved to 18 mlc 02:23 Patient visited by Maira Long RN. mlc 02:50 [facility] Payment Agreement was scanned into Lot78 and attached to record. lja 02:56 Patient visited by Maira Long RN. mlc 03:03 US Abd Limited Returned. EDMS 03:30 Patient visited by Maira Long RN. mlc 03:37 Patient name changed from Lelia\S\\S\Connor\S\ to Lelia\S\Yves\S\Connor. EDMS 04:31 Patient visited by Nati Werner PCA. erwin 05:24 Patient visited by Maira Long RN. mlc 05:50 Patient visited by Maira Long RN. mlc 06:58 Patient visited by Maira Long RN. mlc 07:15 Attending Physician role handed off by Kory Miller DO fg 07:15 China Villanueva MD is Attending Physician. fg 07:23 Primary Nurse role handed off by Maira Long RN deg 07:47 Patient visited by Yelitza Ridley RN. hs1 07:59 Patient visited by Gloria Alicea. nb2 08:02 Barry Collins is Hospitalizing Provider. fg 08:09 Written Provider Order was scanned into Lot78 and attached to record. deg 09:23 Patient moved to Admit Hold deg 10:29 Patient visited by Olivia Sadler PCA. ct3 10:56 No procedures done that require assistance. hs1 14:31 T-Sheet-- Draft Copy was scanned into Lot78 and attached to record. gb Administered Medications: 02:02 Drug: morphine 4 mg [morphine 4 mg/mL intravenous cartridge (1 mL)] Route: IVP; [place] [facility] [place] antecubital; 02:23 Follow up: BP 130 / 84; Pulse 55 bpm; Resp 20 bpm; Pulse Ox 99% ; Pain 10/10 Adult; mlc Response: No significant change.; Pain is unchanged, physician notified 02:02 Drug: Ondansetron 4 mg [ondansetron HCl 2 mg/mL intravenous solution (2 mL)] Route: mlc IVP; Site: right antecubital; 02:55 Drug: morphine 4 mg [morphine 4 mg/mL intravenous cartridge (1 mL)] Route: IVP; Site: [facility] [place] right antecubital; 03:28 Drug: NS 0.9% 1000 ml [sodium chloride 0.9 % intravenous solution] Route: IV; Rate: 200 mlc mL/hr; Site: right antecubital; 05:22 Drug: Dilaudid - HYDROmorphone 0.5 mg [hydromorphone 1 mg/mL injection syringe (0.5 mlc mL)] Route: IVP; Site: right antecubital; 05:49 Follow up: BP 118 / 71; Pulse 61 bpm; Resp 16 bpm; Pulse Ox 96% ; Pain 6/10 Adult; mlc Response: Pain is decreased 08:19 Drug: Dilaudid - HYDROmorphone 0.5 mg [hydromorphone 1 mg/mL injection syringe (0.5 hs1 mL)] Route: IVP; Site: right antecubital; 08:20 Drug: LR 1000 ml [lactated ringers intravenous solution] Route: IV; Rate: 125 mL/hr; hs1 Site: right antecubital; 11:04 Drug: Dilaudid - HYDROmorphone 0.5 mg [hydromorphone 1 mg/mL injection syringe (0.5 hs1 mL)] Route: IVP; Site: right antecubital; Order Results: Lab Order: Amylase; SPEC'M 11/02/16 01:39 Test: AMYLASE; Value: 65; Range: 25-115; Units: U/L; Status: F Lab Order: Basic Metabolic Profile; SPEC'M 11/02/16 01:39 Test: GLUCOSE, FASTING; Value: 116; Range: 70-105; Abnormal: Above high normal; Units: MG/DL; Status: F Test: BLOOD UREA NITROGEN; Value: 13; Range: 7-18; Units: MG/DL; Status: F Test: CREATININE FOR GFR; Value: 0.88; Range: 0.55-1.02; Units: MG/DL; Status: F Test: GLOMERULAR FILTRATION RATE; Value: > 60.0; Range: >60; Status: F Test: SODIUM LEVEL; Value: 141; Range: 136-145; Units: MEQ/L; Status: F Test: POTASSIUM SERUM; Value: 3.8; Range: 3.5-5.1; Units: MEQ/L; Status: F Test: CHLORIDE LEVEL; Value: 104; Range: 98-107; Units: MEQ/L; Status: F Test: CARBON DIOXIDE LEVEL; Value: 28; Range: 21-32; Units: MEQ/L; Status: F Test: ANION GAP; Value: 9; Range: 8-16; Units: MEQ/L; Status: F Test: CALCIUM LEVEL; Value: 8.5; Range: 8.5-10.1; Units: MG/DL; Status: F Test Note: ; Units are mL/min/1.73 m2 Chronic Kidney Disease Staging per NKF: Stage I & II GFR >=60 Normal to Mildly Decreased Stage III GFR 30-59 Moderately Decreased Stage IV GFR 15-29 Severely Decreased Stage V GFR <15 Very Little GFR Left ESRD GFR <15 on ACCOUNTS PAYABLE MANAGER Lab Order: CBC with Diff; SPEC'M 11/02/16 01:39 Test: WHITE BLOOD COUNT; Value: 8.3; Range: 4.0-10.0; Units: K/mm3; Status: F Test: RED BLOOD COUNT; Value: 4.04; Range: 4.00-5.40; Units: M/mm3; Status: F Test: HEMOGLOBIN; Value: 13.4; Range: 12.0-16.0; Units: g/dl; Status: F Test: HEMATOCRIT; Value: 39.8; Range: 36.0-47.0; Units: %; Status: F Test: MEAN CORPUSCULAR VOLUME; Value: 98.5; Range: 80.0-96.0; Abnormal: Above high normal; Units: fl; Status: F Test: MEAN CORPUSCULAR HEMOGLOBIN; Value: 33.1; Range: 27.0-33.0; Abnormal: Above high normal; Units: pg; Status: F Test: MEAN CORPUSCULAR HGB CONC; Value: 33.6; Range: 32.0-36.5; Units: g/dl; Status: F Test: RED CELL DISTRIBUTION WIDTH; Value: 12.2; Range: 11.5-14.5; Units: %; Status: F Test: PLATELET COUNT, AUTOMATED; Value: 223; Range: 150-450; Units: k/mm3; Status: F Test: NEUTROPHILS %; Value: 76.7; Range: 36.0-66.0; Abnormal: Above high normal; Units: %; Status: F Test: LYMPH %; Value: 18.2; Range: 24.0-44.0; Abnormal: Below low normal; Units: %; Status: F Test: MONO %; Value: 3.0; Range: 0.0-5.0; Units: %; Status: F Test: EOS %; Value: 0.4; Range: 0.0-3.0; Units: %; Status: F Test: BASO %; Value: 0.4; Range: 0.0-1.0; Units: %; Status: F Test: LARGE UNSTAINED CELL %; Value: 1.3; Range: 0.0-4.0; Units: %; Status: F Test: NEUTROPHILS #; Value: 6.4; Range: 1.8-7.7; Units: K/mm3; Status: F Test: LYMPH #; Value: 1.5; Range: 1.5-4.5; Units: K/mm3; Status: F Test: MONO #; Value: 0.3; Range: 0.0-0.8; Units: K/mm3; Status: F Test: EOS #; Value: 0.0; Range: 0.0-0.50; Units: K/mm3; Status: F Test: BASO #; Value: 0.0; Range: 0.0-0.2; Units: K/mm3; Status: F Test: LARGE UNSTAINED CELL #; Value: 0.1; Range: 0.0-0.4; Units: K/mm3; Status: F Lab Order: Lipase; SPEC'M 11/02/16 01:39 Test: LIPASE; Value: 107; Range: 73-393; Units: U/L; Status: F Lab Order: Liver Profile; SPEC'M 11/02/16 01:39 Test: AST/SGOT; Value: 10; Range: 15-37; Abnormal: Below low normal; Units: U/L; Status: F Test: ALT/SGPT; Value: 23; Range: 12-78; Units: U/L; Status: F Test: ALKALINE PHOSPHATASE; Value: 70; Range: 45-117; Units: U/L; Status: F Test: BILIRUBIN,TOTAL; Value: 0.3; Range: 0.2-1.0; Units: MG/DL; Status: F Test: BILIRUBIN,DIRECT; Value: < 0.1; Range: 0.0-0.2; Units: MG/DL; Status: F Test: TOTAL PROTEIN; Value: 7.9; Range: 6.4-8.2; Units: GM/DL; Status: F Test: ALBUMIN; Value: 3.8; Range: 3.2-5.2; Units: GM/DL; Status: F Test: ALBUMIN/GLOBULIN RATIO; Value: 0.93; Range: 1.00-1.93; Abnormal: Below low normal; Status: F Radiology Order: US Abd Limited Test: US Abd Limited REASON FOR EXAMINATION: Biliary Colic; ; CLINICAL HISTORY: Abdominal pain.; TECHNIQUE: Realtime sonographic images were obtained in multiple projections.; COMMENTS:; The liver is of normal size, parenchyma demonstrates normal echogenicity. No discrete hepatic mass is; seen.; There is mild biliary ductal dilatation. CBD measures 7.6mm. The gallbladder is distended measuring 1; 2.4x4.5x3.5 cm with an impacted stone in the neck of the gallbladder or the cystic duct. The right ki; dney measures 11.8x4.6x4.7 cm , free of hydronephrosis.; IMPRESSION:; Distended gallbladder.; Impacted gallstone in the neck of the gallbladder or proximal cystic duct.; Mildly dilated extrahepatic biliary tree.; Thank you for your kind referral of this patient.; ; Outcome: 03:39 Ultrasound Study completed. [facility] 08:03 Decision to Hospitalize by Provider. 11:02 Discharge Assessment: Patient awake, alert and oriented x 3. No cognitive and/or hs1 functional deficits noted. Patient verbalized understanding of disposition instructions. patient administered narcotics - yes. Pt provided with safe discharge. The following High Risk Discharge criteria are identified: None. Admitted to Pediatrics accompanied by nurse, family with patient, via wheelchair, with chart. Condition: stable. Admission hand-off: Report called to Pediatrics. Property :Personal belongings accompany Pt. 11:30 Patient left the ED. hs1 Signatures: Dispatcher [employer] EDMS Marcella Davis, Catalyst Operator Gasoline Unit deg Yessica Dutton, RN RN km Lucia Ford Lexus Haynes, Reg Reg gb Yelitza Ridley RN RN hs1 Nati Werner, RESEARCH ANIMAL ATTENDANT RESEARCH ANIMAL ATTENDANT erwin Sadler, Olivia, RESEARCH ANIMAL ATTENDANT RESEARCH ANIMAL ATTENDANT ct3 Susanne Snyder, DO DO bs6 Maira LongRN RN [facility] Arel, China Leone MD MD Chelsey Milan, Reg Reg hs2 Gloria Alicea2 Chart Complete KUSH
--- NOTE | 2016-11-04 12:31 | EDDOCDS ---
Physician Documentation [facility] Name: Lelia Connor Age: 36 yrs Sex: Female : 1980 Arrival Date: 11/02/2016 Time: 01:10 Bed Admit Hold Private MD: Disposition: 11/02/16 08:03 Hospitalization ordered by Barry Collins for Inpatient Admission. Preliminary diagnosis is Cholecystitis, unspecified. - Bed requested for M PED. - Status is Inpatient Admission. hs1 - Condition is Stable. - Problem is new. - Symptoms have improved. Historical: - Allergies: No known drug Allergies; - Home Meds: 1. BCP 1 tab once daily - PMHx: Pneumothorax, Spontaneous; - PSHx: none; - Social history: Smoking status: Patient states was never smoker of tobacco. No barriers to communication noted, The patient speaks fluent Cymraes, Speaks appropriately for age. - Family history: Not pertinent, No immediate family members are acutely ill. - : The pt / caregiver states he / she is not on anticoagulants. Home medication list is obtained from the patient. - Exposure Risk Screening:: None identified. 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 10 in. (177.80 cm) (R); Pain 10/10; 02:21 BP 130 / 84 (auto/); mlc 02:23 BP 130 / 84; Pulse 55; Resp 20; Pulse Ox 99% ; Pain 10/10; mlc 02:56 Pulse Ox 100% ; mlc 03:09 BP 120 / 77 (auto/); mlc 03:09 Pulse Ox 99% ; mlc 03:24 BP 128 / 81 (auto/); mlc 03:24 Pulse Ox 100% ; mlc 03:39 Pulse Ox 100% ; mlc 03:39 BP 136 / 85 (auto/); mlc 03:54 Pulse Ox 100% ; mlc 03:54 BP 133 / 85 (auto/); mlc 04:09 Pulse Ox 99% ; mlc 04:09 BP 130 / 82 (auto/); mlc 04:24 Pulse Ox 100% ; mlc 04:24 BP 125 / 78 (auto/); mlc 04:39 Pulse Ox 99% ; mlc 04:39 BP 128 / 80 (auto/); mlc 04:54 BP 125 / 78 (auto/); mlc 04:54 Pulse Ox 99% ; mlc 05:09 BP 143 / 84 (auto/); mlc 05:09 Pulse Ox 99% ; mlc 05:24 Pulse Ox 96% ; mlc 05:24 BP 125 / 77 (auto/); mlc 05:39 Pulse Ox 95% ; mlc 05:39 BP 118 / 71 (auto/); mlc 05:49 BP 118 / 71; Pulse 61; Resp 16; Pulse Ox 96% ; Pain 6/10; mlc 05:54 Pulse Ox 95% ; mlc 05:54 BP 123 / 77 (auto/); mlc 06:09 Pulse Ox 95% ; mlc 06:09 BP 123 / 76 (auto/); mlc 06:24 Pulse Ox 96% ; mlc 06:24 BP 133 / 83 (auto/); mlc 06:39 Pulse Ox 95% ; mlc 06:39 BP 126 / 80 (auto/); mlc 06:54 BP 129 / 82 (auto/); mlc 06:54 Pulse Ox 95% ; mlc 07:33 BP 132 / 82; Pulse 84; Resp 18; Pulse Ox 96% ; Pain 9/10; hs1 07:59 Temp 98.6(O); nb2 10:29 BP 132 / 82; Pulse 80; Resp 18; Temp 97.7(O); Pulse Ox 99% on R/A; Pain 4/10; ct3 01:25 Body Mass Index 28.70 (90.72 kg, 177.80 cm) [facility] [place]DM: 01:45 morphine 4 mg IVP once ordered. bs6 01:48 Undress patient appropriately for examination ordered. bs6 01:49 Amylase Ordered. EDMS 01:49 Basic Metabolic Profile Ordered. EDMS 01:49 CBC with Diff Ordered. EDMS 01:49 Lipase Ordered. EDMS 01:49 Liver Profile Ordered. EDMS 01:49 NOTHING BY MOUTH+DIET ordered. EDMS 01:50 US Abd Limited Ordered. EDMS 01:53 Ondansetron 4 mg IVP once ordered. bs6 02:30 morphine 4 mg IVP once ordered. bs6 02:50 [facility] [place] Payment Agreement was scanned into [employer] and attached to record. lja 02:50 Financial registration complete. lja 03:14 NS 0.9% 1000 ml IV at 200 mL/hr continuous ordered. bs6 05:16 Dilaudid - HYDROmorphone 0.5 mg IVP once ordered. bs6 08:03 BED REQUEST+ADM ordered. EDMS 08:07 Admission / Observation Status ordered. EDMS 08:07 NPO DIET ordered. EDMS 08:09 Written Provider Order was scanned into [employer] and attached to record. deg 08:19 LR Solution 1000 ml IV at 125 mL/hr once ordered. hs1 08:19 Dilaudid - HYDROmorphone 0.5 mg IVP once ordered. hs1 09:41 HCG,Serum Qualitative Ordered. EDMS 11:03 Dilaudid - HYDROmorphone 0.5 mg IVP once ordered. hs1 14:31 T-Sheet-- Draft Copy was scanned into [employer] and attached to record. gb Administered Medications: 02:02 Drug: morphine 4 mg [morphine 4 mg/mL intravenous cartridge (1 mL)] Route: IVP; Site: [facility] [place] right antecubital; 02:23 Follow up: BP 130 / 84; Pulse 55 bpm; Resp 20 bpm; Pulse Ox 99% ; Pain 10/10 Adult; mlc Response: No significant change.; Pain is unchanged, physician notified 02:02 Drug: Ondansetron 4 mg [ondansetron HCl 2 mg/mL intravenous solution (2 mL)] Route: mlc IVP; Site: right antecubital; 02:55 Drug: morphine 4 mg [morphine 4 mg/mL intravenous cartridge (1 mL)] Route: IVP; Site: [facility] [place] right antecubital; 03:28 Drug: NS 0.9% 1000 ml [sodium chloride 0.9 % intravenous solution] Route: IV; Rate: 200 mlc mL/hr; Site: right antecubital; 05:22 Drug: Dilaudid - HYDROmorphone 0.5 mg [hydromorphone 1 mg/mL injection syringe (0.5 mlc mL)] Route: IVP; Site: right antecubital; 05:49 Follow up: BP 118 / 71; Pulse 61 bpm; Resp 16 bpm; Pulse Ox 96% ; Pain 6/10 Adult; mlc Response: Pain is decreased 08:19 Drug: Dilaudid - HYDROmorphone 0.5 mg [hydromorphone 1 mg/mL injection syringe (0.5 hs1 mL)] Route: IVP; Site: right antecubital; 08:20 Drug: LR 1000 ml [lactated ringers intravenous solution] Route: IV; Rate: 125 mL/hr; hs1 Site: right antecubital; 11:04 Drug: Dilaudid - HYDROmorphone 0.5 mg [hydromorphone 1 mg/mL injection syringe (0.5 hs1 mL)] Route: IVP; Site: right antecubital; Signatures: Dispatcher [employer] EDMS Marcella Davis, Psychology Clinician Unit deg Yessica Dutton, RN RN kmg1 Lexus Sparks, Reg Reg gb Yelitza Ridley RN RN hs1 Susanne Snyder, DO DO bs6 Maira Long,TL RN mlc Stanleyl, China Leone MD MD Miguelina Saba RN RN lmg The chart was reviewed and I authenticate all verbal orders and agree with the evaluation and treatment provided.Attachments: 02:50 [facility] Payment Agreement lja 08:09 Written Provider Order deg 14:31 T-Sheet-- Draft Copy gb Chart Complete MTDD
--- NOTE | 2016-11-04 12:31 | EDDOCDS ---
Physician Documentation [facility] Name: Lelia Connor Age: 36 yrs Sex: Female : 1980 Arrival Date: 11/02/2016 Time: 01:10 Bed Admit Hold Private MD: Disposition: 11/02/16 08:03 Hospitalization ordered by Barry Collins for Inpatient Admission. Preliminary diagnosis is Cholecystitis, unspecified. - Bed requested for M PED. - Status is Inpatient Admission. hs1 - Condition is Stable. - Problem is new. - Symptoms have improved. Historical: - Allergies: No known drug Allergies; - Home Meds: 1. BCP 1 tab once daily - PMHx: Pneumothorax, Spontaneous; - PSHx: none; - Social history: Smoking status: Patient states was never smoker of tobacco. No barriers to communication noted, The patient speaks fluent Jamaican, Speaks appropriately for age. - Family history: Not pertinent, No immediate family members are acutely ill. - : The pt / caregiver states he / she is not on anticoagulants. Home medication list is obtained from the patient. - Exposure Risk Screening:: None identified. 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 10 in. (177.80 cm) (R); Pain 10/10; 02:21 BP 130 / 84 (auto/); mlc 02:23 BP 130 / 84; Pulse 55; Resp 20; Pulse Ox 99% ; Pain 10/10; mlc 02:56 Pulse Ox 100% ; mlc 03:09 BP 120 / 77 (auto/); mlc 03:09 Pulse Ox 99% ; mlc 03:24 BP 128 / 81 (auto/); mlc 03:24 Pulse Ox 100% ; mlc 03:39 Pulse Ox 100% ; mlc 03:39 BP 136 / 85 (auto/); mlc 03:54 Pulse Ox 100% ; mlc 03:54 BP 133 / 85 (auto/); mlc 04:09 Pulse Ox 99% ; mlc 04:09 BP 130 / 82 (auto/); mlc 04:24 Pulse Ox 100% ; mlc 04:24 BP 125 / 78 (auto/); mlc 04:39 Pulse Ox 99% ; mlc 04:39 BP 128 / 80 (auto/); mlc 04:54 BP 125 / 78 (auto/); mlc 04:54 Pulse Ox 99% ; mlc 05:09 BP 143 / 84 (auto/); mlc 05:09 Pulse Ox 99% ; mlc 05:24 Pulse Ox 96% ; mlc 05:24 BP 125 / 77 (auto/); mlc 05:39 Pulse Ox 95% ; mlc 05:39 BP 118 / 71 (auto/); mlc 05:49 BP 118 / 71; Pulse 61; Resp 16; Pulse Ox 96% ; Pain 6/10; mlc 05:54 Pulse Ox 95% ; mlc 05:54 BP 123 / 77 (auto/); mlc 06:09 Pulse Ox 95% ; mlc 06:09 BP 123 / 76 (auto/); mlc 06:24 Pulse Ox 96% ; mlc 06:24 BP 133 / 83 (auto/); mlc 06:39 Pulse Ox 95% ; mlc 06:39 BP 126 / 80 (auto/); mlc 06:54 BP 129 / 82 (auto/); mlc 06:54 Pulse Ox 95% ; mlc 07:33 BP 132 / 82; Pulse 84; Resp 18; Pulse Ox 96% ; Pain 9/10; hs1 07:59 Temp 98.6(O); nb2 10:29 BP 132 / 82; Pulse 80; Resp 18; Temp 97.7(O); Pulse Ox 99% on R/A; Pain 4/10; ct3 01:25 Body Mass Index 28.70 (90.72 kg, 177.80 cm) [facility] [place]DM: 01:45 morphine 4 mg IVP once ordered. bs6 01:48 Undress patient appropriately for examination ordered. bs6 01:49 Amylase Ordered. EDMS 01:49 Basic Metabolic Profile Ordered. EDMS 01:49 CBC with Diff Ordered. EDMS 01:49 Lipase Ordered. EDMS 01:49 Liver Profile Ordered. EDMS 01:49 NOTHING BY MOUTH+DIET ordered. EDMS 01:50 US Abd Limited Ordered. EDMS 01:53 Ondansetron 4 mg IVP once ordered. bs6 02:30 morphine 4 mg IVP once ordered. bs6 02:50 [facility] [place] Payment Agreement was scanned into [employer] and attached to record. lja 02:50 Financial registration complete. lja 03:14 NS 0.9% 1000 ml IV at 200 mL/hr continuous ordered. bs6 05:16 Dilaudid - HYDROmorphone 0.5 mg IVP once ordered. bs6 08:03 BED REQUEST+ADM ordered. EDMS 08:07 Admission / Observation Status ordered. EDMS 08:07 NPO DIET ordered. EDMS 08:09 Written Provider Order was scanned into [employer] and attached to record. deg 08:19 LR Solution 1000 ml IV at 125 mL/hr once ordered. hs1 08:19 Dilaudid - HYDROmorphone 0.5 mg IVP once ordered. hs1 09:41 HCG,Serum Qualitative Ordered. EDMS 11:03 Dilaudid - HYDROmorphone 0.5 mg IVP once ordered. hs1 14:31 T-Sheet-- Draft Copy was scanned into [employer] and attached to record. gb Administered Medications: 02:02 Drug: morphine 4 mg [morphine 4 mg/mL intravenous cartridge (1 mL)] Route: IVP; Site: [facility] [place] right antecubital; 02:23 Follow up: BP 130 / 84; Pulse 55 bpm; Resp 20 bpm; Pulse Ox 99% ; Pain 10/10 Adult; mlc Response: No significant change.; Pain is unchanged, physician notified 02:02 Drug: Ondansetron 4 mg [ondansetron HCl 2 mg/mL intravenous solution (2 mL)] Route: mlc IVP; Site: right antecubital; 02:55 Drug: morphine 4 mg [morphine 4 mg/mL intravenous cartridge (1 mL)] Route: IVP; Site: [facility] [place] right antecubital; 03:28 Drug: NS 0.9% 1000 ml [sodium chloride 0.9 % intravenous solution] Route: IV; Rate: 200 mlc mL/hr; Site: right antecubital; 05:22 Drug: Dilaudid - HYDROmorphone 0.5 mg [hydromorphone 1 mg/mL injection syringe (0.5 mlc mL)] Route: IVP; Site: right antecubital; 05:49 Follow up: BP 118 / 71; Pulse 61 bpm; Resp 16 bpm; Pulse Ox 96% ; Pain 6/10 Adult; mlc Response: Pain is decreased 08:19 Drug: Dilaudid - HYDROmorphone 0.5 mg [hydromorphone 1 mg/mL injection syringe (0.5 hs1 mL)] Route: IVP; Site: right antecubital; 08:20 Drug: LR 1000 ml [lactated ringers intravenous solution] Route: IV; Rate: 125 mL/hr; hs1 Site: right antecubital; 11:04 Drug: Dilaudid - HYDROmorphone 0.5 mg [hydromorphone 1 mg/mL injection syringe (0.5 hs1 mL)] Route: IVP; Site: right antecubital; Signatures: Dispatcher [employer] EDMS Marcella Davis, Clerical Aide Teacher Unit deg Yessica Dutton, RN RN kmg1 Lexus Sparks, Reg Reg gb Yelitza Ridley RN RN hs1 Susanne Snyder, DO DO bs6 Maira Long,TL RN mlc Stanleyl, China Leone MD MD Miguelina Saba RN RN lmg The chart was reviewed and I authenticate all verbal orders and agree with the evaluation and treatment provided.Attachments: 02:50 [facility] Payment Agreement lja 08:09 Written Provider Order deg 14:31 T-Sheet-- Draft Copy gb Chart Complete MTDD
== END 2016-11-03 10:25 | disposition home or self-care (01) ==
LOC: M ED 01:10 → M SDC 07:58 → M PED 11:25 → M SDC 11-03 10:25
PROVIDERS: ATTEND Surgery
DX: K80.10 Calculus of gallbladder with chronic cholecystitis without obstruction (principal); Z79.3 Long term (current) use of hormonal contraceptives; Z87.09 Personal history of other diseases of the respiratory system
CPT/HCPCS: 36415; 47562; 76705; 80048; 80076; 82150; 83690; 84703; 85025; 88304; 96372; 96374; 96375; 96376; 99285; C9113; J1100; J1170; J1885; J2250; J2370; J2405; J2710; J3010

== ENCOUNTER 2018-03-14 19:39 | Day surgery (SDC) | payer OTHER ==
[2018-03-14 18:08] LABS: KETONE, URINE AUTO RFX NEGATIVE (NEGATIVE); LEUKOCYTE ESTERASE UR AUTO RFX NEGATIVE (NEGATIVE); MUCUS, URINE RFX SMALL (NEGATIVE); NITRITE, URINE AUTO RFX NEGATIVE (NEGATIVE); RBC, URINE AUTO RFX 0 /HPF (0-3); SPECIFIC GRAVITY UR AUTO RFX 1.005 (1.002-1.035); SQUAM EPITHELIAL CELL UR AURFX 0 /HPF (0-6); WBC, URINE AUTO RFX 0 /HPF (0-3)
[2018-03-14] MEDS: MORPHINE 4 MG/ML 1ML VIAL/SYRINGE (J2270) IV (18:22)
[2018-03-14] MEDS: NS 1,000 ML IV (18:23)
[2018-03-14 18:38] LABS: BASO % 0.4 % (0.0-1.0); EOS # 0.1 10^3/uL (0.0-0.50); EOS % 0.6 % (0.0-3.0); HEMOGLOBIN 12.7 g/dl (12.0-15.5); IMMATURE GRANULOCYTE % 0.4 % (0-3.0); LYMPH # 2.7 10^3/uL (1.5-4.5); LYMPH % 34.7 % (24.0-44.0); MEAN CORPUSCULAR HGB CONC 33.4 g/dl (32.0-36.5); MEAN CORPUSCULAR VOLUME 98.7 fl (80.0-96.0); MONO # 0.6 10^3/uL (0.0-0.8); MONO % 7.3 % (0.0-5.0); NEUTROPHILS # 4.4 10^3/uL (1.8-7.7); NEUTROPHILS % 56.6 % (36.0-66.0); PLATELET COUNT, AUTOMATED 233 10^3/uL (150-450); RED BLOOD COUNT 3.85 10^6/uL (4.00-5.40); RED CELL DISTRIBUTION WIDTH 12.6 % (11.5-14.5); WHITE BLOOD COUNT 7.8 10^3/uL (4.0-10.0)
[2018-03-14 19:02] LABS: ALBUMIN/GLOBULIN RATIO 1.03 (1.00-1.93); ALKALINE PHOSPHATASE 96 U/L (45-117); ALT/SGPT 15 U/L (12-78); ANION GAP 6 MEQ/L (8-16); AST/SGOT 10 U/L (7-37); BILIRUBIN,DIRECT < 0.1 MG/DL (0.0-0.2); BILIRUBIN,TOTAL 0.3 MG/DL (0.2-1.0); BLOOD UREA NITROGEN 12 MG/DL (7-18); CALCIUM LEVEL 9.1 MG/DL (8.5-10.1); CARBON DIOXIDE LEVEL 27 MEQ/L (21-32); CHLORIDE LEVEL 107 MEQ/L (98-107); CREATININE FOR GFR 0.67 MG/DL (0.55-1.30); GLOMERULAR FILTRATION RATE > 60.0 (>60); GLUCOSE, FASTING 90 MG/DL (70-100); POTASSIUM SERUM 3.9 MEQ/L (3.5-5.1); SODIUM LEVEL 140 MEQ/L (136-145); TOTAL PROTEIN 7.9 GM/DL (6.4-8.2)
[2018-03-14 19:15] LABS: CONTROL LINE UCG INT CTR LINE PRESENT; URINE PREG TEST NEGATIVE (NEGATIVE)
[2018-03-14] MEDS ORDERED: ISOVUE-370 76% 100ML VIAL (Q9967) As Ordered (20:02)
[2018-03-14] MEDS: AMPICILLIN SOD/SULBACTAM SOD 3 GM in D5W MINI-BAG PLUS 100 ML IV (21:39)
[2018-03-14] MEDS: metroNIDAZOLE 500 MG in APPROPRIATE DILUENT 1 EA IV (22:53)
[2018-03-14] MEDS ORDERED: KETOROLAC 60 MG/2 ML VIAL (J1885) As Ordered (23:21)
[2018-03-14] MEDS ORDERED: ROCURONIUM BROMIDE 50 MG/5 ML VIAL As Ordered (23:21)
[2018-03-14] MEDS ORDERED: NEOSTIGMINE 10 MG/10 ML VIAL (J2710) As Ordered (23:21)
[2018-03-14] MEDS ORDERED: PROPOFOL 200 MG/20 ML VIAL As Ordered (23:21)
[2018-03-14] MEDS ORDERED: ONDANSETRON 4MG/2ML VIAL (J2405) As Ordered (23:21)
[2018-03-14] MEDS ORDERED: GLYCOPYRROLATE INJ 0.2 MG/ML 2 ML VIAL As Ordered (23:21)
[2018-03-14] MEDS ORDERED: LIDOCAINE 2% INJ 100 MG/5 ML SDV (FOR ANES.) As Ordered (23:21)
[2018-03-14] MEDS ORDERED: dexameTHASONE 4 MG/ML 1ML VIAL (J1100) As Ordered (23:21)
[2018-03-14] MEDS ORDERED: MIDAZOLAM INJ 2 MG/2 ML VIAL (J2250) As Ordered (23:22)
[2018-03-14] MEDS ORDERED: fentaNYL 100 MCG/2 ML INJECTION (J3010) As Ordered (23:22)
[2018-03-15] MEDS ORDERED: fentaNYL 100 MCG/2 ML INJECTION (J3010) As Ordered (00:26)
[2018-03-15] MEDS ORDERED: PHENYLephrine HCL 500 MCG/5 ML (100MCG/ML) SYRINGE (J2370) As Ordered (00:41)
[2018-03-15] MEDS: LIDOCAINE 1% SDV INJ 30 ML VIAL As Ordered (01:00)
[2018-03-15] MEDS: BUPIVACAINE HCL 0.25% 30 ML VIAL As Ordered (01:00)
[2018-03-15] MEDS: LR 1,000 ML IV ×3 (01:03→11:36)
[2018-03-15] MEDS ORDERED: NORCO, ANEXSIA 5/325MG TABLET (HYDROcodone/ACETAMINOPHEN) PO (01:15)
[2018-03-15] MEDS ORDERED: MORPHINE 4 MG/ML 1ML VIAL/SYRINGE (J2270) IV (01:15)
[2018-03-15] MEDS ORDERED: ACETAMINOPHEN TAB 650MG DOSE (2X325MG) PO (01:15)
[2018-03-15] MEDS ORDERED: ONDANSETRON 4MG/2ML VIAL (J2405) IV ×2 (01:15→01:30)
[2018-03-15] MEDS ORDERED: PERCOCET 5MG/325MG TAB PO (01:30)
[2018-03-15] MEDS ORDERED: METOCLOPRAMIDE INJ 10MG/2ML VIAL (J2765) IV (01:30)
[2018-03-15] MEDS ORDERED: fentaNYL 100 MCG/2 ML INJECTION (J3010) IV (01:30)
[2018-03-15] MEDS ORDERED: MEPERIDINE INJ 25 MG/ML VIAL (J2175) IV (01:30)
[2018-03-15] MEDS ORDERED: PROMETHAZINE INJ 25 MG/ML VIAL (J2550) IV (01:30)
[2018-03-15] MEDS: NORCO, ANEXSIA 5/325MG TABLET (HYDROcodone/ACETAMINOPHEN) PO ×2 (02:40→11:36)
[2018-03-15] MEDS: AMPICILLIN SOD/SULBACTAM SOD 3 GM in D5W MINI-BAG PLUS 100 ML IV ×2 (04:19→09:23)
[2018-03-15] MEDS: metroNIDAZOLE 500 MG in APPROPRIATE DILUENT 1 EA IV (06:23)
[2018-03-15] MEDS: KETOROLAC 30 MG/ML VIAL (J1885) IV (06:23)
[2018-03-15] MEDS: VITAMIN D 1,000 INTERNATIONAL UNITS TABLET PO (09:24)
[2018-03-15] MEDS: SENOKOT S TAB PO (09:24)
== END 2018-03-15 13:45 | disposition home or self-care (01) ==
LOC: M PED 03-15 01:54 → M ED 19:39 → M SDC 03-15 13:45
DX: K35.89 Other acute appendicitis (principal)
CPT/HCPCS: 44970